=== PATIENT | male | born 1930 | race Caucasian/White ===

== ENCOUNTER 2019-11-18 10:15 | Inpatient (IN) ==
[2019-11-18] MEDS ORDERED: NS 2,000 ML MISC PRN (10:31)
--- NOTE | 2019-11-18 10:40 | PROVIDER DOCUMENTATION ---
HPI-General Adult - General Chief Complaint: Weakness Stated Complaint: WEAKNESS Time Seen by Provider: 11/18/19 10:18 Source: patient, family, EMS Allergies/Adverse Reactions: Patient Allergies Allergy/AdvReac Type Severity Reaction Status Date / Time Penicillins Allergy ANAPHYLAXIS Verified 11/18/19 11:12 Sulfa (Sulfonamide Allergy "stays in Verified 11/18/19 11:12 Antibiotics) my systems and bad taste in my mouth" novacaine AdvReac Unknown Uncoded 11/18/19 11:12 Home Medications: Home Medication List Medication Instructions Recorded Confirmed Last Taken Type Carbamazepine 200 mg PO BID 12/20/16 11/18/19 11/18/19 History Mirtazapine 45 mg PO QHS 12/20/16 11/18/19 1 Day Ago History ~11/17/19 Pantoprazole [Protonix] 40 mg PO DAILY@0700 12/20/16 11/18/19 11/18/19 History Aspirin 81 mg PO DAILY 03/21/17 11/18/19 11/18/19 History Metoprolol [Lopressor] 25 mg PO DAILY 03/21/17 11/18/19 11/18/19 History Prasugrel [Effient] 10 mg PO DAILY 03/21/17 11/18/19 11/18/19 History ATORVAstatin [Lipitor] 40 mg PO QHS 09/25/17 11/18/19 1 Day Ago History ~11/17/19 Melatonin 20 mg PO HS 09/25/17 11/18/19 1 Day Ago History ~11/17/19 Midodrine HCl [Proamatine] 10 mg PO DIRECTED 09/25/17 11/18/19 11/18/19 History Sennosides/Docusate Sodium [Stool 1 each PO BID 09/25/17 11/18/19 11/18/19 Hist ory Softener Tablet] Cyanocobalamin (Vitamin B-12) 1,000 mcg PO QAM 11/18/19 11/18/19 11/18/19 History [Vitamin B-12] Pregabalin 150 mg PO QAM 11/18/19 11/18/19 11/18/19 History - History of Present Illness -Gen Adult Nature of Presenting Problems: 89yo male presents via EMS with CC of hallucinations and muscle jerks. Per EMS the patient missed multiple dialysis sessions and the family called EMS 2/2 to patient having hallucinations and difficulty moving. Per the family the patient has had weakness and shakes as well as hallucinations. The patient is alert and oriented x3, but does report that he has been having back muscle jerks since last week . The patient denies any pain. The family reports that they were recently acessed at another ER and were discharge with dx of dehydration, but patient has not improved since then. Location of Pain/Injury: reports: none Pain Radiation: reports: no radiation Quality of Pain: reports: none Severity: reports: mild Onset/Duration: reports: 3 days ago Timing: reports: still present Context/Activities at Onset: reports: none, other (recently missed dialysis) Modifying Factors: improves with: nothing Associated Symptoms: reports: weakness, other (shakes, decreased appetite.) - Diabetes Related Context Context: reports: other (missed dialyis) Review of Systems - Adult - REVIEW OF SYSTEMS - ADULT Constitutional: denies: fever Eyes: reports: decreased vision Ears, Nose, Mouth & Throat: reports: no symptoms reported. denies: throat pain Cardiovascular: reports: no symptoms reported. denies: chest pain Respiratory: reports: no symptoms reported. denies: shortness of breath Gastrointestinal: reports: no symptoms reported. denies: abdominal pain Genitourinary: reports: hesitency, incontinence Musculoskeletal: reports: muscle weakness, other (jerks) Integumentary: reports: no symptoms reported Neurological: reports: other (weakness) Psychiatric: reports: other (hallucinations) Hematologic/Lymphatic: reports: no symptoms reported, other (no bleeding) Allergic/Immunologic: reports: no symptoms reported, other (no swelling) Past History - Adult - PAST MEDICAL HISTORY-ADULT Review of Records: reports: Old Records Reviewed Cardiovascular: reports: CAD (with stent), HTN Genitourinary: reports: ESRD (M,W,F dialsysis Dr. Valderrama patient.) - FAMILY HISTORY Family History: reviewed, not pertinent - SOCIAL HISTORY Smoking: denies Substance Use: none/never Alcohol Use Frequency: never Physical Exam-General - PHYSICAL EXAM-ADULT Initial Vital Signs Reviewed: Yes - CONSTITUTIONAL General Appearance: appears well, alert, lethargic - EYES Eyes: PERRL/EOMI. negative: conjuctival exudate, photophobia, sclera injected, scleral icterus - HEAD, EARS, NOSE, MOUTH & THROAT HENMT: normocephalic/atraumatic. negative: moist mucous membranes (dry), pharyngeal erythema - NECK Neck: non-tender, supple - RESPIRATORY Respiratory: lungs clear, no respiratory distress, decreased breath sounds (LLL) . negative: stridor, wheezing - CARDIOVASCULAR Cardiovascular: regular rate, rhythm, systolic murmur. negative: no edema (trace LE) - GASTROINTESTINAL (ABDOMEN) Abdominal Exam: non tender, soft - MUSCULOSKELETAL Extremity: non-tender, other (strength 5/5 in the upper and lower extremities) - SKIN Integumentary: ecchymosis (multiple in the upper extremities.) - NEUROLOGIC Neurologic: grossly normal, no motor/sensory deficits, motor weakness - PSYCHIATRIC Psych/Mental Status: normal thought content, normal thought process, oriented x 3 Progress - PLAN OF CARE/RESULTS Progress/Plan/Lab Results: Vital Signs - 8 hr 11/18/19 10:25 Temperature 97.7 F Pulse Rate 64 Respiratory Rate 18 Blood Pressure 122/63 O2 Sat by Pulse Oximetry 94 L Orders Category Date Time Status Dialysate Bath: DIRECTED Care 11/18/19 10:31 Active Dialysate Flow: DIRECTED Care 11/18/19 10:31 Active Dialysis Blood Flow: DIRECTED Care 11/18/19 10:31 Active Dialysis Machine Settings: DIRECTED Care 11/18/19 10:31 Active Dialysis Treatment Time: DIRECTED Care 11/18/19 10:31 Active Dialysis Treatment Weight ROUTINE Care 11/18/19 10:31 Active Dialysis UF Removal Amount: DIRECTED Care 11/18/19 10:31 Active Dialyzer Type: DIRECTED Care 11/18/19 10:31 Active NRSG - Obtain Dialysis Consent NOW Care 11/18/19 10:31 Active 0.9% Sodium Chloride Inj [Ns] 2,000 ml Med 11/18/19 10:31 Discontinued MISC As Directed mls/hr - ESRD patient with AMS, weakness, and muscle spasm after missing dialysis - full work up for AMS with metabolic, infectious, neurological, drug induced, and structural disease initiated. - will ensure evaluation of electrolytes and plan to call Dr. 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 Marrero who believes the patient needs dialysis. Discussed with Dr. Marrero that the patient has been difficult to obtain blood speciman for analysis, so will have dialysis nurse draw blood prior to dialysis so we can analyze labs prior to dialysis.) Reassessment #2 Status: other (Patient currently in dialysis. CMP without significant electrolyte abnormalities. Given acidosis, leukopenia, and AMS will plan for admission to the hospitalist team for further work up and care. Discussed with the hospitalist team who has accepted the patient.) Departure - Departure Date of Disposition Decision: 11/18/19 Time of Disposition Decision: 15:12 DIAGNOSIS: ESRD (end stage renal disease) on dialysis Disposition: ADMITTED INPATIENT 09 Certified Medical Emergency: Emergent Condition: Good Referrals and Follow-Ups: Watson Rankin MD [Primary Care Provider] - - Critical Care Note This patient required my direct & personal management of CC.: No Attestation - Physician/ ROSA Attestation Patient care was provided by Advanced Practice Provider:: No The physician spent face to face time with patient:: Yes Advanced Practice Provider documentation review:: Supervising physician onsite and consulted in the evaluation and care of this patient. The physician did have a face to face encounter with the patient.
[2019-11-18 11:57] LABS: ALLEN TEST YES; BLOOD TYPE ARTERIAL; METHB 0.8 % (0.0-1.5); O2(CT) 16.2 mL/dL (15.0-23.0); PO2(98.6) 108 mmHg (60-100); SAMPLE BLOOD; SAO2 98.2 % (95.0-100.0)
[2019-11-18 12:00] LABS: MODALITY CANNULA
[2019-11-18 12:03] LABS: PCO2(98.6) 61 mmHg (35-45)
--- NOTE | 2019-11-18 12:06 | Diag Imaging Result Doc PS360 ---
EXAM: CHEST-1 VIEW HISTORY: Altered Mental status TECHNIQUE: Single view COMPARISON: 09/25/2017 FINDINGS: The heart is enlarged and there is central vascular prominence. There are infiltrates and atelectasis in the left lung base with a small left effusion. Calcified granuloma in the right lung. Previously there was a right jugular line. This is no longer present. No pneumothoraces. IMPRESSION: 1.Left basilar infiltrates and atelectasis with small left effusion 2.Cardiomegaly with central vascular prominence Electronically signed by Sal Evans 11/18/2019 12:04 PM
--- NOTE | 2019-11-18 12:32 | Diag Imaging Result Doc PS360 ---
EXAM: CT HEAD W/O CONTRAST HISTORY: Head injury TECHNIQUE: CT brain without contrast COMPARISON: None. FINDINGS: No parenchymal hemorrhage. No epidural or subdural hematoma. No subarachnoid hemorrhage. No mass identified on this noncontrasted exam. Mild atrophy. No hydrocephalus. No skull fracture. IMPRESSION: No hemorrhage. No injury. This exam was performed using automated exposure control, adjustment of mA or kV according to patient size, and/or use of iterative reconstruction technique. Electronically signed by Sal Evans 11/18/2019 12:30 PM
--- NOTE | 2019-11-18 12:33 | EKG Report ---
Test Performed on : 11/18/2019 11:13:21 AM Test Reason : Altered Mental Status Blood Pressure : / mmHG Vent. Rate : 060 BPM Atrial Rate : 060 BPM P-R Int : 232 ms QRS Dur : 158 ms QT Int : 460 ms P-R-T Axes : -11 -72 -05 degrees QTc Int : 460 ms Sinus rhythm. with 1st degree AV block. Left axis deviation Right bundle branch block Inferior infarct (cited on or before 25-SEP-2017) Anterolateral infarct (cited on or before 25-SEP-2017) Abnormal ECG When compared with ECG of 25-SEP-2017 15:49, Questionable change in QRS duration Questionable change in initial forces of Anterolateral leads Unconfirmed Result
[2019-11-18 13:50] LABS: BASO# 0.01 X1000 (0.0-0.2); BASO% 0.3 % (0.0-0.8); EOS# 0.06 X1000 (0.0-0.7); EOS% 1.7 % (0.0-10.0); HEMOGLOBIN 11.9 g/dL (14.0-18.0); IMM GRAN# 0.02 X1000 (0.0-0.04); IMM GRAN% 0.6 % (0.0-0.5); LYMPH# 0.93 X1000 (1.2-3.4); LYMPH% 26.1 % (20.5-51.1); MCH 32.6 PG (27-31); MCHC 31.3 g/dL (33-37); MCV 104.1 FL (81-99); MONO# 0.34 X1000 (0.11-0.59); MONO% 9.5 % (1.7-9.3); MPV 11.2 FL (7.4-10.4); NEUT# 2.21 X1000 (1.4-6.5); NEUT% 61.8 % (42.2-75.2); PLT 92 X1000 (130-400); RBC 3.65 XMIL (4.7-6.1); RDW 14.9 % (11.5-14.5); WBC 3.57 X1000 (4.8-10.8)
[2019-11-18 13:56] LABS: INR 0.96; PROTIME 12.9 Seconds (11.0-16.0)
[2019-11-18 13:57] LABS: PTT 29.5 Seconds (22.3-41.8)
[2019-11-18 14:21] LABS: ALB/GLOB RATIO 1.8; ALBUMIN 3.1 g/dL (3.5-5.0); CALCIUM 8.1 mg/dL (8.8-10.2); CREATININE 6.8 mg/dL (0.7-1.2); TOTAL BILIRUBIN 0.26 mg/dL (0.20-1.00); TOTAL PROTEIN 4.8 g/dL (6.3-8.3)
[2019-11-18 14:36] LABS: CK INDEX 1.9 (0.0-2.5); CK-MB 3.96 ng/mL (0.0-5.0)
[2019-11-18] MEDS ORDERED: DUONEB (A & A) INH PRN (15:57)
--- NOTE | 2019-11-18 19:40 | HISTORY AND PHYSICAL ---
CHIEF COMPLAINT: Generalized weakness, hallucinations. HISTORY OF PRESENT ILLNESS: This is an 89-year-old gentleman with a history of end-stage renal disease on Monday, Monday, Monday hemodialysis, prostate cancer, coronary artery disease. He presents to the emergency room with family members complaining of generalized weakness since but stating that both arms and both legs are weak. He does complain of muscle jerking to all 4 extremities. He states this started last also. He was seen in an outlying ER, diagnosed with dehydration. They stated he was discharged from the emergency room although there was no change in his symptoms. He has missed multiple dialysis sessions over the last 2 weeks. At the time of my exam the patient is alert and oriented x3. He just complains of feeling weak all over. He was found to have a creatinine of 6 with a BUN of 67. PAST MEDICAL HISTORY: 1. End-stage renal disease on Monday, Monday, Monday hemodialysis. 2. Prostate cancer. 3. CAD status post stent 2017. 4. Hyperlipidemia. 5. Hypertension. 6. Sleep apnea. PAST SURGICAL HISTORY: Cholecystectomy, cataract removal, hernia repair, total knee replacement, left arm fistula. SOCIAL HISTORY: He drinks alcohol. He denies any tobacco or illicit drug use. He does live with family members. ALLERGIES: Penicillin which causes anaphylaxis, sulfa which gives a bad taste in his mouth and Novocain with unknown reaction. HOME MEDICATIONS: A list will be obtained by the nursing staff and once verified will review and restart as appropriate. REVIEW OF SYSTEMS: Discussed with patient with pertinent positives stated in the HPI. He denied any syncope or dizziness, any chest pain or palpitations, any shortness of breath, cough, fever, chills, any night sweats, any vomiting, diarrhea, constipation, black or bloody vomitus or stools any hematuria, dysuria, frequency, urgency. PHYSICAL EXAMINATION: GENERAL: This is an 89-year-old gentleman who is sitting up in the stretcher in the dialysis in no distress. VITAL SIGNS: Blood pressure is 163/70 with a heart rate of 64, respirations are 18, temperature is 97.7 degrees with room air saturations of 95%. HEENT: Head is normocephalic, atraumatic. Mucous membranes are moist. NECK: Supple with trachea midline. CARDIOVASCULAR: Regular rate and rhythm. S1 and S2 are appreciated. He does have a systolic murmur. Calves are nontender bilateral with peripheral pulses palpable x4 extremities. PULMONARY: Breath sounds are diminished in the bases. Chest rises and falls symmetric respiration. Chest wall is nontender to palpation. GASTROINTESTINAL: Abdomen soft, nontender, nondistended with bowel sounds in all 4 quadrants. SKIN: Warm and dry. NEUROLOGIC: He is alert and oriented x3. LABS: WBC is 3.5 with hemoglobin 11.9, hematocrit 38, platelets of 92,000. Sodium is 136, potassium 5, BUN 67, creatinine 6.8 with a glucose of 126. Blood alcohol is 0. CT of the head reveals no hemorrhage, no injury. Chest x-ray, left basilar infiltrates and atelectasis with a small pneumonia, cardiomegaly with central vascular prominence. ASSESSMENT AND PLAN: 1. End-stage renal disease on Monday, Monday, Monday hemodialysis in a patient who is noncompliant missing numerous dialysis appointments, is currently in dialysis. 2. Hypercapnic respiratory failure. Will continue with supplemental oxygen. 3. Left basilar infiltrates and atelectasis. 4. Ischemic heart disease. 5. Congestive heart failure secondary to diastolic dysfunction with an ejection fraction of 60% in August 2018. 6. Hypertension. 7. Coronary artery disease status post stent in 2017 currently on Effient. 8. Generalized weakness. 9. Reported hallucinations. The patient is alert and oriented x3 at this time. PLAN: The patient is in dialysis at present. He will be admitted to the medical floor, placed on telemetry. We will identify his home medications and continue as appropriate. Will consult Dr. Valderrama for medical management. Will consult Physical Therapy. Check a daily renal profile. Check a CBC in the morning. We will get a urine drug screen as well as a blood alcohol. We will identify his home medications and continue as appropriate. Pt was evaluated and plan was discussed with Dr Grimes. Further treatments pending hospital course. Dictated by DIAMOND Wiggins for Robbie Portillo MD cc: DIAMOND Wiggins MD [facility]
[2019-11-18 19:51] LABS: ALLEN TEST YES; BE 0.9 mmoll (-3.0-3.0); BLOOD TYPE ARTERIAL; HCO3-(ACT) 25.6 mmoll (20.0-26.0); O2(CT) 17.2 mL/dL (15.0-23.0); PO2(98.6) 97 mmHg (60-100); SAMPLE BLOOD; SAO2 97.7 % (95.0-100.0); THB 12.8 g/dL (11.5-17.4)
[2019-11-18 19:56] LABS: MODALITY CANNULA; PCO2(98.6) 58 mmHg (35-45)
--- NOTE | 2019-11-18 20:16 | Diag Imaging Result Doc PS360 ---
EXAM: CHEST-PORTABLE - 11/18/2019 HISTORY: low 02 sat TECHNIQUE: Portable chest COMPARISON: Prior exam of 11/18/2019 FINDINGS: There is decreased prominence of central vascular markings compared to prior. There are left basilar infiltrate and left pleural effusion similar to prior. There are small right pleural effusion similar to prior. There is no evidence of pneumothorax. IMPRESSION: Left basilar infiltrate and left pleural effusion similar to prior. Small right pleural effusion similar to prior. Electronically signed by Joce Powell 11/18/2019 8:14 PM
--- NOTE | 2019-11-18 20:38 | HISTORY AND PHYSICAL ---
ADDENDUM: Patient seen and examined by me [id number]. All the laboratory, vital signs, and images were reviewed. This patient was brought to the emergency department due to some hallucinations, possible muscle spasms/jerks. At the moment of my physical exam, this patient was completely awake and alert. He was able to recognize family members at the bedside. He was able to say his name and date of . He was following commands and answering my questions. Laboratory showed some CO2 retention. BUN and creatinine elevated. I am not quite sure if this patient missed a dialysis recently. He is not able to provide this information. He seems to be a little bit confused on and off. He is having some mild tremors, but probably is better compared with admission. This patient received dialysis today. I will monitor this patient closely. The patient has not been able to walk at home. He needs to use a walker, but recently he has been using more a wheelchair. I agree with the rest of the nurse practitioner's assessment and plan. Since he has a left basilar infiltrate, I will start this patient on antibiotics. cc: Robbie Portillo MD
[2019-11-18] MEDS ORDERED: LEVAQUIN 750 MG/D5W 750 MG/150 ML IVPB IV ONE (21:01)
[2019-11-18] MEDS: REMERON PO SCH (21:12)
[2019-11-18] MEDS: MELATONIN PO SCH (21:12)
[2019-11-18] MEDS: PERICOLACE PO SCH (21:12)
[2019-11-18] MEDS: TEGRETOL PO SCH (21:12)
[2019-11-19] MEDS: PROTONIX PO SCH (06:39)
[2019-11-19 06:48] LABS: ALBUMIN 2.8 g/dL (3.5-5.0); CALCIUM 7.8 mg/dL (8.8-10.2); CREATININE 4.4 mg/dL (0.7-1.2); PHOSPHORUS 3.9 mg/dL (2.7-4.5); POTASSIUM 4.1 mmol/L (3.5-5.1)
[2019-11-19] MEDS ORDERED: LYRICA PO SCH (09:00)
[2019-11-19] MEDS: PERICOLACE PO SCH ×2 (09:59→20:30)
[2019-11-19] MEDS: ASPIRIN PO SCH (10:00)
[2019-11-19] MEDS: VITAMIN B-12 PO SCH (10:00)
[2019-11-19] MEDS: TEGRETOL PO SCH ×2 (10:00→20:30)
[2019-11-19] MEDS: EFFIENT PO SCH (10:53)
--- NOTE | 2019-11-19 10:59 | NEPHROLOGY CONSULTATION ---
DATE: 11/18/2019 REASON FOR CONSULTATION: End-stage renal disease and medical management. HISTORY OF PRESENT ILLNESS: Mr. Little is an 89-year-old, white male who follows with us and receives his routine hemodialysis our [facility]. He has been in his usual baseline health and was seen last by me at the end of last week. He has coronary disease, hypertension, hyperlipidemia, history of prostate cancer. His dialysis treatments are complicated by occasional hypotension and hypoalbuminemia. He was brought to the emergency room by family because of generalized weakness, as well as possible hallucinations. He missed his treatment on Monday because he was to weak to go. Symptoms started last . He denies any new medications. No chills, fevers, cough, sputum, shortness of breath, etc. PAST MEDICAL HISTORY: As above. SOCIAL: Lives with his family. No alcohol or tobacco. FAMILY HISTORY: Noncontributory. REVIEW OF SYSTEMS: Noncontributory. ALLERGIES: Penicillin and sulfa. HOME MEDICATIONS: Include mirtazapine, carbamazepine, pantoprazole, aspirin, metoprolol, Effient, Melatonin, atorvastatin, Midrin, cyanocobalamin. PHYSICAL EXAMINATION: Vital Signs: Blood pressure 163/75, heart rate 58, respiration 18, afebrile. General: Elderly man, no acute distress. Skin: Warm and dry. Somewhat pale. HEENT: Conjunctivae are pink. Pupils are equal. Oropharynx is dry. Neck: Supple. Neck veins are not distended. Trachea is midline. Heart: Regular. No murmurs, rubs, gallops. Lungs: Have equal excursion, equal breath sounds. No crackles or wheezes. Abdomen: Soft, nontender. Bowel sounds present. Extremities: Have no edema, clubbing, or cyanosis. Neurologic: No worthy for asterixis. IMPRESSION: 1. Chronic kidney disease 5D. He missed his last dialysis treatment. He is currently on dialysis using a 2K bath. We will target his outpatient dry weight. 2. Altered mental status, weakness, asterixis. He denies that any of his medications are new. I agree with withholding his lyrica which I will do. His dose is now 5, but it certainly could be problematic in a dialysis patient. I am not aware of any of his other medications causing these findings. Otherwise, medications are reviewed. No changes required. cc: Randall Valderrama MD [facility]
[2019-11-19 13:06] LABS: BASO# 0.01 X1000 (0.0-0.2); BASO% 0.3 % (0.0-0.8); EOS# 0.08 X1000 (0.0-0.7); EOS% 2.2 % (0.0-10.0); HEMATOCRIT 38.1 % (42.0-52.0); HEMOGLOBIN 12.1 g/dL (14.0-18.0); LYMPH# 0.88 X1000 (1.2-3.4); LYMPH% 23.7 % (20.5-51.1); MCH 33.3 PG (27-31); MCHC 31.8 g/dL (33-37); MONO# 0.45 X1000 (0.11-0.59); MONO% 12.1 % (1.7-9.3); MPV 11.3 FL (7.4-10.4); NEUT% 61.7 % (42.2-75.2); PLT 91 X1000 (130-400); RBC 3.63 XMIL (4.7-6.1); RDW 14.6 % (11.5-14.5); WBC 3.72 X1000 (4.8-10.8)
--- NOTE | 2019-11-19 17:52 | PROGRESS NOTE ---
DATE: 11/19/2019 SUBJECTIVE: The patient is sitting up at the edge of the bed. He states that he feels a lot better today. He is alert and oriented to person, place and time. OBJECTIVE: Vital Signs: Temperature 98.3 degrees, blood pressure 148/74, heart rate 75, respirations 14, O2 saturation 99% on room air. General: This is an elderly male lying in bed, in no acute distress. Heart: S1, S2 normal. Regular rate and rhythm. Lungs: Equal air entry bilaterally. No wheezing. No rales. Abdomen: Positive bowel sounds. Soft, nontender, nondistended. Extremities: No edema. No cyanosis. No calf tenderness. Neurologic: The patient is alert and oriented x3. LABORATORY DATA: White blood cell count 3.7, hemoglobin 12, hematocrit 38, platelets 91,000. Sodium 137, potassium 4.1, chloride 97, CO2 is 26, BUN 35, creatinine 4.4, glucose 85, calcium 7.8. ASSESSMENT AND PLAN: 1. Metabolic encephalopathy. Improved. The patient is more awake and alert today. He is able to answer questions appropriately. We will continue to treat the underlying infection. 2. Possible left basilar pneumonia. Continue with antibiotic therapy. A procalcitonin level is currently pending. Will add incentive spirometry. 3. Thrombocytopenia. This appears to be new. We will continue to monitor the patient closely. 4. Chronic kidney disease stage 5. Management as per the aircraft maintenance instructor. 5. History of prostate cancer. Aware. 6. Obstructive sleep apnea. Aware. 7. Coronary artery disease status post stent. Continue on the current cardiac medications. 8. Disposition. Continue with physical therapy. cc: Estella Estrada MD [facility]
[2019-11-19] MEDS: MELATONIN PO SCH (20:31)
[2019-11-19] MEDS: REMERON PO SCH (20:32)
[2019-11-20 06:34] LABS: HEMATOCRIT 31.6 % (42.0-52.0); HEMOGLOBIN 10.1 g/dL (14.0-18.0); MCH 33.4 PG (27-31); MCV 104.6 FL (81-99); MPV 10.9 FL (7.4-10.4); RBC 3.02 XMIL (4.7-6.1); RDW 14.4 % (11.5-14.5); WBC 2.95 X1000 (4.8-10.8)
[2019-11-20 06:42] LABS: ALBUMIN 2.9 g/dL (3.5-5.0); CALCIUM 7.9 mg/dL (8.8-10.2); POTASSIUM 4.2 mmol/L (3.5-5.1)
[2019-11-20 06:59] LABS: CREATININE 5.4 mg/dL (0.7-1.2)
[2019-11-20] MEDS: PROTONIX PO SCH (07:03)
--- NOTE | 2019-11-20 07:07 | Diag Imaging Result Doc PS360 ---
CHEST-2 VIEWS - 11/20/2019 INDICATION: pneumonia COMPARISON: 11/18/2019 FINDINGS: Stable moderate opacification in the left lung base, likely a pleural effusion. There is also a trace right pleural effusion. No new infiltrates. Stable cardiomegaly. IMPRESSION: No change from prior. Electronically signed by Basil Arce 11/20/2019 7:04 AM
[2019-11-20] MEDS: ASPIRIN PO SCH (08:59)
[2019-11-20] MEDS: TEGRETOL PO SCH ×2 (08:59→20:32)
[2019-11-20] MEDS: EFFIENT PO SCH (08:59)
[2019-11-20] MEDS: VITAMIN B-12 PO SCH (08:59)
[2019-11-20] MEDS: PERICOLACE PO SCH ×2 (08:59→20:31)
--- NOTE | 2019-11-20 10:04 | Diag Imaging Result Doc PS360 ---
CT THORAX W/O CONTRAST - 11/20/2019 INDICATION: Dyspnea COMPARISON: Chest x-ray from 11/20/2019 FINDINGS: There is no adenopathy. There is cardiomegaly. Great vessels are grossly normal. There are small bilateral pleural effusions left greater than right. There is some mild patchy atelectasis in the lingula and left lower lobe as well. Airways are clear. There is a low-density right adrenal gland nodule measuring 3.6 cm. This is compatible with a benign myelolipoma. Otherwise upper abdominal images are unremarkable. There are moderate degenerative changes of the spine. No acute or suspicious bony lesion. IMPRESSION: Cardiomegaly. Bilateral pleural effusions left greater than right. Patchy atelectasis in the left lung base. This exam was performed using automated exposure control, adjustment of mA or kV according to patient size, and/or use of iterative reconstruction technique Electronically signed by Basil Arce 11/20/2019 10:02 AM
--- NOTE | 2019-11-20 17:08 | PROGRESS NOTE ---
DATE: 11/20/2019 SUBJECTIVE: The patient is a sitting at the edge of the bed. He states that he feels much better today. He is more awake and alert. He reports that he has not had a bowel movement yet. OBJECTIVE: Vital Signs: Temperature 97.3 degrees, blood pressure 146/60, heart rate 71, respirations 19, O2 saturation is 100% on 3 L nasal cannula. General: This is a chronically ill- appearing elderly male sitting at the edge of the bed in no acute distress. Heart: S1, S2 normal. Regular rate and rhythm. Lungs: Clear to auscultation bilaterally. No wheezing. No rales. No rhonchi. Diminished breath sounds in the left lung base. Abdomen: Positive bowel sounds. Soft, nontender, nondistended. Extremities: No edema. No cyanosis. Neurologic: The patient is alert and oriented x3. LABORATORY DATA: White blood cell count 2.9, hemoglobin 10, hematocrit 31, platelets 71,000. Sodium 130, potassium 4.2, chloride 92, CO2 25, BUN 48, creatinine 5.4, glucose 108, calcium 7.9. Chest CT shows bilateral pleural effusions, left greater than right. Atelectasis in the left lung base, 3.6 cm right adrenal nodule. ASSESSMENT AND PLAN: 1. Acute hypoxemic respiratory failure. Continue to try and wean the patient off of supplemental oxygen. 2. Metabolic encephalopathy. Resolved. 3. Bilateral pleural effusions. Aware. 4. Acute bronchitis. The patient is on Levaquin and p.r.n. bronchodilator therapy. 5. Chronic kidney disease stage 5. Management as per the shafting worker. 6. Coronary artery disease status post stent. Continue on aspirin and Effient. 7. History of prostate cancer. Aware. 8. Pancytopenia. Will consult with Hematology for further recommendations. 9. Constipation. Will start miralax and dulcolax. 10. Disposition. Will continue with physical therapy. Will consult administrator social welfare for discharge planning. cc: Estella Estrada MD [facility]
[2019-11-20] MEDS: MIRALAX PO SCH (20:31)
[2019-11-20] MEDS: REMERON PO SCH (20:31)
[2019-11-20] MEDS: MELATONIN PO SCH (20:31)
[2019-11-20] MEDS: COLACE PO SCH (20:31)
[2019-11-20] MEDS: DULCOLAX PR SCH (20:35)
[2019-11-20] MEDS: LEVAQUIN 500 MG/D5W 500 MG/100 ML IVPB IV SCH (23:26)
[2019-11-21 05:33] LABS: HEMATOCRIT 33.8 % (42.0-52.0); MCH 33.6 PG (27-31); MCHC 32.5 g/dL (33-37); MCV 103.4 FL (81-99); RBC 3.27 XMIL (4.7-6.1); RDW 14.5 % (11.5-14.5); WBC 2.84 X1000 (4.8-10.8)
[2019-11-21 05:41] LABS: CALCIUM 8.1 mg/dL (8.8-10.2); CREATININE 6.4 mg/dL (0.7-1.2); PHOSPHORUS 4.8 mg/dL (2.7-4.5); POTASSIUM 4.5 mmol/L (3.5-5.1)
[2019-11-21] MEDS: PROTONIX PO SCH (06:29)
[2019-11-21] MEDS ORDERED: NS 2,000 ML MISC PRN (06:48)
[2019-11-21] MEDS ORDERED: HEPARIN IV PRN (06:48)
[2019-11-21] MEDS ORDERED: TIGHT: 0.2 ML/HR FOR DIALYSIS MISC PRN (06:48)
[2019-11-21] MEDS: MIRALAX PO SCH ×2 (10:26→20:30)
[2019-11-21] MEDS: EFFIENT PO SCH (10:26)
[2019-11-21] MEDS: ASPIRIN PO SCH (10:26)
[2019-11-21] MEDS: COLACE PO SCH ×2 (10:26→20:30)
[2019-11-21] MEDS: VITAMIN B-12 PO SCH (10:26)
[2019-11-21] MEDS: TEGRETOL PO SCH ×2 (10:26→20:34)
[2019-11-21] MEDS: PERICOLACE PO SCH ×2 (10:27→20:30)
--- NOTE | 2019-11-21 11:56 | NEPHROLOGY PROGRESS NOTE ---
DATE: 11/21/2019 SUBJECTIVE: He is sitting up, working a [employer] puzzle. He is still wearing supplemental oxygen, but no cough, shortness of breath, etc. He states he feels back to normal. OBJECTIVE: Vital Signs: Blood pressure 146/62, heart rate 76, respirations 14, afebrile. General: No acute distress. Skin: Warm and dry. HEENT: Conjunctivae are pink. Neck: Neck veins are not distended. Heart: Regular. No gallops. Lungs: Equal. No crackles or wheezes. Abdomen: Soft, nontender. Bowel sounds present. Extremities: No edema, clubbing, or cyanosis. Neurologic: No asterixis. IMPRESSION: Altered mental state. He had recently started Lyrica under the care of Dr. Rankin. His asterixis is most likely related to Lyrica toxicity. This seems to be resolved with withdrawal of medication and dialysis. I counseled the patient regarding the likely etiology of his encephalopathy, and avoidance of gabapentinoids in the future. He was taking this for complaints of peripheral neuropathy. He is currently taking mirtazapine 45 mg daily. He is on this particular antidepressant for assistance with appetite. It is not clear that this has made a big difference, but I may change this medication to duloxetine. I will discuss this with him in the future. I brought it up today. From my perspective, he can be discharged whenever you feel his other problems are stable. He is still requiring supplemental oxygen, but this is weaning. He had a CT of his chest yesterday, which demonstrated only patchy atelectasis and effusions. cc: Randall Valderrama MD
[2019-11-21 14:45] LABS: PROTIME 13.3 Seconds (11.0-16.0)
--- NOTE | 2019-11-21 16:27 | PROGRESS NOTE ---
DATE: 11/21/2019 SUBJECTIVE: The patient is resting comfortably in bed. He states that he feels okay today. No acute events noted overnight. OBJECTIVE: Vital Signs: Temperature 97.6 degrees, blood pressure 167/63, heart rate 73, respirations 19, and O2 saturations 100% on 3 liters nasal cannula. General: This is a chronically ill-appearing elderly male sitting up in bed in no acute distress. Heart: S1 and S2 normal. Regular rate and rhythm. Lungs: Equal air entry bilaterally. No wheezing. No rales. Abdomen: Positive bowel sounds. Soft, nontender, nondistended. Extremities: No edema, no cyanosis. Neurologic: The patient is alert and oriented x4. LABS: White blood cell count 2.8, hemoglobin 11, hematocrit 33, platelets 79,000. Sodium 132, potassium 4.5, chloride 94, CO2 of 24, BUN 57, creatinine 6.4, glucose 105, phosphorus 4.8, iron 42, folic acid 3.2. ASSESSMENT AND PLAN: 1. Acute hypoxemic respiratory failure. We will try and wean the patient off of supplemental oxygen today. 2. Toxic metabolic encephalopathy. Resolved. 3. Bilateral pleural effusions. Stable. 4. Acute bronchitis. Continue on Levaquin. 5. Chronic kidney disease stage 5. The patient is due for dialysis today. 6. Obesity. Aware. 7. Coronary artery disease, status post stent. Stable. Continue on aspirin and Effient. 8. Pancytopenia. Hematology has seen the patient and a workup is in progress. 9. Constipation. Continue with laxative therapy. 10. Disposition. The patient is going to be discharged to inpatient rehab once a bed is available. Continue with physical therapy. cc: Estella Estrada MD [facility]
--- NOTE | 2019-11-21 18:58 | HEMO/ONC CONSULTATION ---
DATE: 11/21/2019 REQUESTING PHYSICIAN: Hospitalist service. REASON FOR CONSULTATION: Pancytopenia. HISTORY OF PRESENT ILLNESS: Mr. Little is an 89-year-old male who presented to the emergency department complaining of generalized weakness. He was found to have dehydration initially. He does have endstage renal disease and receives hemodialysis on Mondays, Wednesdays and Fridays. He is now thought to have acute bronchitis, resulting in metabolic encephalopathy as well as weakness. During his hospitalization, he has had low counts. They were low on admission, but have been trending downward since that time. He feels okay today and has no other acute complaints. REVIEW OF PAST MEDICAL HISTORY: 1. Endstage renal disease, on hemodialysis. 2. Prostate cancer. 3. CAD. 4. Hyperlipidemia. 5. Hypertension. 6. Sleep apnea. PAST SURGICAL HISTORY: 1. Cholecystectomy. 2. Eye cataract removal. 3. Total knee replacement. 4. Left arm fistula. 5. Hernia repair. SOCIAL HISTORY: The patient denies any tobacco or illicit drug use. He lives with family members. He does report drinking alcohol, but no quantity noted. FAMILY HISTORY: No family history of any blood disorders. REVIEW OF SYSTEMS: As per HPI. Twelve points have been reviewed and all else is negative. PHYSICAL EXAMINATION: Vital Signs: Temperature 97.6 degrees, heart rate 73, respirations 19, blood pressure 167/63, O2 saturation 100% on 3 L nasal cannula. General: This is an elderly male lying in his hospital bed. He has a family member at bedside. HEENT: Head normocephalic, atraumatic. Eyes: Pupils equal, round and reactive. Ears, nose, throat, neck and mouth: Mucosa appears to be normal. Gross auditory acuity is intact. Cardiovascular: S1, S2 heard. Regular rate. Regular rhythm. Respiratory: Coarse breath sounds noted throughout. Gastrointestinal: Abdomen is soft. Positive bowel sounds noted. Musculoskeletal: No obvious bony abnormalities. Neurologic: The patient is alert and oriented. LABORATORY DATA: White blood cells today are 2.84, hemoglobin 11.0 hematocrit is 33.8, platelet count is 79,000. Sodium is 132, potassium 4.5, chloride 94, CO2 is 24, BUN 57, creatinine 6.4, glucose is 105. ASSESSMENT AND PLAN: 1. Pancytopenia. Review of historical labs showed that he has had normal white blood cell count and platelet count previously. His counts have only been depressed since this hospitalization. This is likely due to acute illness versus medication causes. We will go ahead and check vitamin studies as well as a disseminated intravascular coagulation panel to replenish/correct anything that we can at this point. Otherwise, continue to treat his underlying infection and monitor his counts closely. His anemia is close to his baseline. He likely has anemia secondary to his endstage renal disease. 2. Respiratory failure. He continues on supplemental oxygen. 3. Metabolic encephalopathy. This has resolved. 4. Acute bronchitis. He is on antibiotics. 5. Chronic kidney disease, endstage. He will continue to receive hemodialysis per Dr. Valderrama. We want to thank you for consulting us on Mr. Little. We will continue to follow along and adjust our treatment plan per his hospital course. Dictated by RON Morrow for Maya Caicedo MD cc: Maya Caicedo MD I have seen and examined the patient and the above note reflects my history, physical exam, assessment and plan. Maya Caicedo MD [facility]
[2019-11-21] MEDS: MELATONIN PO SCH (20:29)
[2019-11-21] MEDS: REMERON PO SCH (20:29)
[2019-11-21] MEDS: DULCOLAX PR SCH (20:30)
[2019-11-21] MEDS: LACTULOSE PO SCH (20:33)
[2019-11-22 05:45] LABS: HEMATOCRIT 31.7 % (42.0-52.0); HEMOGLOBIN 10.9 g/dL (14.0-18.0); MCH 35.6 PG (27-31); MCHC 34.4 g/dL (33-37); MCV 103.6 FL (81-99); MPV 11.5 FL (7.4-10.4); RBC 3.06 XMIL (4.7-6.1); RDW 14.5 % (11.5-14.5); WBC 2.04 X1000 (4.8-10.8)
[2019-11-22] MEDS: PROTONIX PO SCH (06:03)
[2019-11-22 06:07] LABS: ALBUMIN 2.9 g/dL (3.5-5.0); CALCIUM 7.8 mg/dL (8.8-10.2); CREATININE 6.5 mg/dL (0.7-1.2); PHOSPHORUS 4.8 mg/dL (2.7-4.5); POTASSIUM 4.6 mmol/L (3.5-5.1)
[2019-11-22 08:45] LABS: BLOOD TYPE ARTERIAL; SAMPLE BLOOD
[2019-11-22 08:49] LABS: HCO3-(ACT) 26.5 mmoll (20.0-26.0); PO2(98.6) 96 mmHg (60-100); pH(98.6) 7.26 (7.35-7.45)
[2019-11-22 08:50] LABS: ALLEN TEST YES; MODALITY CANNULA
[2019-11-22 08:52] LABS: PCO2(98.6) 58 mmHg (35-45)
[2019-11-22] MEDS: TEGRETOL PO SCH ×2 (11:01→20:59)
[2019-11-22] MEDS: EFFIENT PO SCH (11:01)
[2019-11-22] MEDS: PERICOLACE PO SCH ×2 (11:01→21:00)
[2019-11-22] MEDS: COLACE PO SCH ×2 (11:01→20:59)
[2019-11-22] MEDS: LACTULOSE PO SCH ×2 (11:01→21:02)
[2019-11-22] MEDS: VITAMIN B-12 PO SCH (11:01)
[2019-11-22] MEDS: ASPIRIN PO SCH (11:02)
[2019-11-22] MEDS: MIRALAX PO SCH ×2 (11:02→21:02)
--- NOTE | 2019-11-22 12:11 | PROGRESS NOTE ---
DATE: 11/22/2019 SUBJECTIVE: The patient is sitting up in bed resting comfortably. He states that he has not had a bowel movement yet. He is refusing the Dulcolax suppository. OBJECTIVE: Vital Signs: Temperature 97.4 degrees, blood pressure 116/51, heart rate 72, respirations 20, O2 saturation 98% on 3 L nasal cannula. General: This is a chronically ill- appearing elderly male sitting up in bed in no acute distress. Heart: S1, S2 normal. Regular rate and rhythm. Lungs: Equal air entry bilaterally. Diminished breath sounds in the left lung base. No wheezing, no rales. Abdomen: Positive bowel sounds. Soft, nontender, nondistended. Extremities: No edema, no cyanosis. Neurologic: The patient is alert and oriented x4. LABORATORY DATA: White blood cell count 2, hemoglobin 10, hematocrit 31, platelets 75,000. ABG: pH of 7.26, pCO2 58, PO2 96, bicarb 26. Sodium 137, potassium 4.6, chloride 98, CO2 24, BUN 57, creatinine 6.5, glucose 104, calcium 7.8. ASSESSMENT AND PLAN: 1. Acute hypoxemic and hypercapnic respiratory failure. Attempts were made to wean the patient off supplemental oxygen. However, his oxygen saturation drops down to around 85% when decreased to 2 L. The patient states that he has sleep apnea, but he does not use his CPAP machine at home. We will consult with the product tester fiberglass for further recommendations. We will also start the patient on BiPAP at bedtime. 2. Acute bronchitis. Improved. Continue on Levaquin, O2, and bronchodilator therapy. 3. Toxic metabolic encephalopathy, resolved. Likely related to a one-time dose of Lyrica prior to admission. 4. Chronic kidney disease stage V, stable. Management as per the aircraft engine installer. 5. Bilateral pleural effusions. Stable. 6. Constipation. Continue on laxative therapy. 7. Pancytopenia. Unchanged. The patient's counts are stable. Hematology is following. 8. Obesity. Aware. 9. Coronary artery disease status post stent. Continue on the current cardiac medications. 10. Obstructive sleep apnea. Aware. 11. Deconditioning. Continue with physical therapy. 12. Disposition. [facility] is assisting with inpatient rehab placement. We will continue to monitor the patient in the hospital setting until a bed is available. cc: Estella Estrada MD MTDD
[2019-11-22] MEDS: DUONEB (A & A) INH SCH ×3 (13:13→22:53)
--- NOTE | 2019-11-22 14:03 | NEPHROLOGY PROGRESS NOTE ---
DATE: 11/22/2019 SUBJECTIVE: He is feeling well by his estimation. Anticipating rehab placement. He is still requiring supplemental oxygen. OBJECTIVE: Vital Signs: Blood pressure 116/51, heart rate 72, respirations 20, afebrile. General: No acute distress. Skin is warm and dry. Conjunctivae are pink. Neck veins are not distended. Cardiovascular: Heart is regular. No gallops or murmurs. Lungs are equal. No crackles. Abdomen: Soft, nontender. Bowel sounds present. Extremities: No edema, clubbing or cyanosis. IMPRESSION: Chronic kidney disease 5D. He will have his routine hemodialysis treatment today. Electrolytes/acid base/anemia in target. We will challenge his dry weight as his blood pressure allows. cc: Randall Valderrama MD
[2019-11-22] MEDS: FOLIC ACID PO SCH (14:19)
--- NOTE | 2019-11-22 15:17 | Diag Imaging Result Doc PS360 ---
FLAT/UPRIGHT ABD/1 VIEW CHEST - 11/22/2019 INDICATION: hypoxia/constipation TECHNIQUE: COMPARISON: 11/20/2019 FINDINGS: Stable opacification of the left lung base. Heart size remains normal. No new infiltrates. The right lung appears clear. There is a nonobstructive bowel gas pattern. No free air or abnormal calcifications. There are cholecystectomy clips. IMPRESSION: No change in the chest. No acute process in the abdomen. Electronically signed by Basil Arce 11/22/2019 3:14 PM
[2019-11-22] MEDS ORDERED: DULCOLAX PR ONE (15:34)
[2019-11-22] MEDS ORDERED: NS 2,000 ML MISC PRN (16:32)
[2019-11-22] MEDS ORDERED: HEPARIN IV PRN (16:32)
--- NOTE | 2019-11-22 16:58 | HEMO/ONC PROGRESS NOTE ---
DATE: 11/22/2019 SUBJECTIVE: We have reviewed the labs that we have ordered. It appears that the patient likely has pancytopenia secondary to medications. He was also found to be folate-deficient. He has been started on folic acid. May consider changing medications if his counts were to worsen. Dictated by RON Morrow for Maya Caicedo MD cc: Maya Caicedo MD
--- NOTE | 2019-11-22 19:53 | PULMONOLOGY CONSULTATION ---
DATE: 11/22/2019 REQUESTING CLINICIAN: Dr. Estrada. REASON FOR CONSULTATION: Acute hypercapnic respiratory failure. HISTORY OF PRESENT ILLNESS: Mr. Little is an 89-year-old white male with a 30 pack-year history for tobacco (nonsmoker for 30 years), end-stage renal disease, obstructive sleep apnea with noncompliance, who recently received Lyrica for peripheral neuropathy/pain. He reports that he "went out of his mind" and started having active hallucinations. He missed 2 dialysis by his report. He was evaluated by 1 emergency room and diagnosed with dehydration and was reevaluated at [facility] 11/18/2019 with hallucinations and muscle jerks along with generalized weakness. His Lyrica was discontinued and his hallucinations have subsequently resolved. He has evidence of hypoxemic respiratory failure during this hospitalization and has required nasal cannula. He has not had evidence of respiratory distress. He did undergo a CT scan of the thorax 11/20/2019 which revealed patchy atelectasis at the left base with small pleural effusions and cardiomegaly. He denies history of prior lung disease. PAST MEDICAL HISTORY: 1. End-stage renal disease on hemodialysis. 2. Coronary artery disease with prior stent placement. 3. Prostate cancer. 4. Dyslipidemia. 5. Obstructive sleep apnea with noncompliance to CPAP machine. 6. Hypertension. SOCIAL HISTORY: The patient is and lives with his . He smoked for greater than 30 years 1 pack per day before discontinuing tobacco in the 80s. No alcohol use. FAMILY HISTORY: Noncontributory. REVIEW OF SYSTEMS: Notable for details outlined in the HPI. He reports he is returning to his baseline. OBJECTIVE: Vital Signs: Blood pressure 116/51, heart rate 72, respiratory rate 20, oxygen saturation 98% on 3 L per nasal cannula. HEENT: Pupils are equal and reactive. Oropharynx is clear. Neck: Supple. Chest: Reveals good air entry bilaterally. No wheezing or rhonchi. Abdomen: Soft. Extremities: Reveal trace edema. LABORATORIES: Arterial blood gas on 11/18/2019 reveals a pH 7.30, pCO2 of 58, pO2 of 97. Arterial blood gas today reveals a pH 7.26, pCO2 of 58, PO2 of 96. IMPRESSION: 89-year-old with 1. Hypoxemic respiratory failure. 2. Hypercapnic respiratory failure. 3. Thirty pack-year history for tobacco. 4. Pleural effusions. 5. Encephalopathy due to drug reaction. DISCUSSION: 89-year-old with problems outlined above. The patient does not have prior arterial blood gases in the system to help determine the chronicity of his current ventilatory status. The patient does have history of COPD and has small pleural effusions but does not have evidence of ventilatory limitation on exam. He can increase his respiratory rate and subjectively increase his tidal volume on command. He is not breathless. He does not have increased work of breathing. I suspect that he has an altered ventilatory drive. This may be due to his age, recent electrolyte disturbance with missing dialysis, or less likely from the Lyrica. He appears to be in no distress. He may require oxygen at time of discharge. RECOMMENDATIONS: 1. Continue oxygen for hypoxemic respiratory failure. 2. Evaluate for oxygen needs at the time of discharge. 3. Nocturnal BiPAP may be of benefit, however, he is quite clear that he cannot tolerate and will not use this device. cc: Jelani Hill MD
[2019-11-22] MEDS: REMERON PO SCH (21:00)
[2019-11-22] MEDS: MELATONIN PO SCH (21:02)
[2019-11-22] MEDS: DULCOLAX PR SCH (21:03)
[2019-11-22] MEDS: LEVAQUIN 500 MG/D5W 500 MG/100 ML IVPB IV SCH (21:46)
[2019-11-23] MEDS: DUONEB (A & A) INH SCH ×4 (03:19→21:33)
[2019-11-23 05:43] LABS: HEMATOCRIT 32.8 % (42.0-52.0); HEMOGLOBIN 10.4 g/dL (14.0-18.0); MCHC 31.7 g/dL (33-37); MCV 104.1 FL (81-99); MPV 11.5 FL (7.4-10.4); RBC 3.15 XMIL (4.7-6.1); RDW 14.5 % (11.5-14.5); WBC 2.35 X1000 (4.8-10.8)
[2019-11-23 05:55] LABS: ALBUMIN 2.7 g/dL (3.5-5.0); CALCIUM 7.7 mg/dL (8.8-10.2); CREATININE 4.9 mg/dL (0.7-1.2); PHOSPHORUS 4.1 mg/dL (2.7-4.5); POTASSIUM 4.3 mmol/L (3.5-5.1)
[2019-11-23] MEDS: PROTONIX PO SCH (06:06)
[2019-11-23] MEDS: EFFIENT PO SCH (08:46)
[2019-11-23] MEDS: TEGRETOL PO SCH ×2 (08:46→21:00)
[2019-11-23] MEDS: FOLIC ACID PO SCH (08:47)
[2019-11-23] MEDS: LACTULOSE PO SCH ×2 (08:47→20:59)
[2019-11-23] MEDS: ASPIRIN PO SCH (08:47)
[2019-11-23] MEDS: PERICOLACE PO SCH ×2 (08:47→21:00)
[2019-11-23] MEDS: MIRALAX PO SCH ×2 (08:47→20:59)
[2019-11-23] MEDS: COLACE PO SCH ×2 (08:47→20:59)
[2019-11-23] MEDS: VITAMIN B-12 PO SCH (08:47)
--- NOTE | 2019-11-23 13:42 | NEPHROLOGY PROGRESS NOTE ---
DATE: 11/23/2019 SUBJECTIVE: We had some difficulty cannulating his fistula yesterday. He has a hematoma causing some compression of the fistula just distal to the antecubital fossa. We were able to cannulate both proximally and distally to perform dialysis. Feels well today. OBJECTIVE: Vital Signs: Blood pressure 127/59, heart rate 87, respiration 18, afebrile. General: No acute distress. Skin: Warm and dry. Neck: Neck veins are not distended. Heart: Regular. No gallops. Lungs: Equal. No crackles. Abdomen: Soft, nontender. Bowel sounds are present. Extremities: No edema. IMPRESSION: 1. Chronic kidney disease 5D. His next routine dialysis will be Monday. 2. Electrolytes/acid base/anemia/hypertension, all in target. cc: Randall Valderrama MD
--- NOTE | 2019-11-23 15:24 | Extremity Venous Study ---
PROCEDURE NAME: Hemodialysis Access U/S L Arm - 11/22/2019 REQUESTING PHYSICIAN: Dr. Valderrama. SILVER DESIGNER: Celia. INDICATION: Difficulty sticking during dialysis. EQUIPMENT: [employer] E9 Ultrasound System with a 9L-D transducer. FINDINGS: A limited ultrasound was done of the upper extremity for need for marking for dialysis. There was stenosis present in the proximal forearm fistula at an area of a large hematoma. There was flow noted throughout the fistula, and per the player piano technician's note, external skin markings were done to facilitate insertion of the cannula. INTERPRETATION: Patent left upper extremity radiocephalic arteriovenous fistula, although hematoma is causing some compression. cc: MD Randall Turner MD
--- NOTE | 2019-11-23 16:57 | PROGRESS NOTE ---
DATE: 11/23/2019 SUBJECTIVE: The patient is resting comfortably in bed. He states that he had several bowel movements last night. The patient also had a syncopal episode overnight while getting up from the bedside commode. OBJECTIVE: Vital Signs: Temperature 98.7 degrees, blood pressure 119/53, heart rate 88, respirations 18, O2 saturation is 100% on 4 L nasal cannula. Intake 620; output 1 L. General: This is a chronically ill-appearing elderly male, lying in bed in no acute distress. Heart: S1, S2 normal. Regular rate and rhythm. Lungs: Equal air entry bilaterally. No wheezing. No rales. Abdomen: Positive bowel sounds. Soft, nontender, nondistended. Extremities: No edema. No cyanosis. No calf tenderness. Neurologic: The patient is alert and oriented x4. LABS: White blood cell count 2.3, hemoglobin 10, hematocrit 32, platelets 67. Sodium 137, potassium 4.3, chloride 98, CO2 26. BUN 38, creatinine 4.9, glucose 120, calcium 7.7, phosphorus 4.1, albumin 2.7. ASSESSMENT AND PLAN: 1. Chronic hypoxemic and hypercapnic respiratory failure. We will continue with supplemental oxygen. 2. Acute bronchitis. Continue with Levaquin and bronchodilator therapy. 3. Toxic metabolic encephalopathy. Resolved. 4. Bilateral pleural effusions. Stable. 5. Chronic kidney disease stage 5. Stable. Management as per the housekeeper manager. 6. Constipation. Improved. Continue with the current laxative regimen. 7. Pancytopenia. Stable. Continue to monitor for improvement. 8. Obesity. Aware. 9. Coronary artery disease status post stent. Continue on the current cardiac medications. 10. Deconditioning. Continue with physical therapy. 11. Disposition: We are currently awaiting insurance approval for the patient to be discharged to inpatient rehabilitation in [place]. cc: Estella Estrada MD MTDD
--- NOTE | 2019-11-23 18:56 | PULMONOLOGY PROGRESS NOTE ---
DATE: 11/23/2019 SUBJECTIVE: The patient is awake, alert, and conversant and lying in bed. He has nasal cannula in place. He denies shortness of breath. He denies cough or sputum production. OBJECTIVE: Vital Signs: The patient has been afebrile for the last 24 hours. Blood pressure 119/53, heart rate 88, respiratory rate 18, oxygen saturation 100% on 4 L per nasal cannula. HEENT: Pupils are equal and reactive. Oropharynx appears clear. Neck: Supple. Chest: Reveals decreased breath sounds in the lung bases. Cardiac: S1-S2. Abdomen: Soft and without hepatosplenomegaly. Extremities: Reveal trace edema. LABORATORIES: White blood count 2.35, hemoglobin 10.4, platelet count 67,000. Sodium 137, potassium 4.3, chloride 98, bicarbonate 26, BUN 38, creatinine 4.9. IMPRESSION: 89-year-old with 1. A 30 pack-year history for tobacco. 2. Small to moderate bilateral effusions. 3. Hypoxemic and hypercapnic respiratory failure. 4. Recent encephalopathy related to drug reaction. DISCUSSION: 89-year-old with problems outlined above. I suspect that he has a component of chronicity to his hypercapnic respiratory failure and he may have a component of chronic hypoxemic respiratory failure as well. He may require oxygen at the time of discharge. PLAN: 1. Continue oxygen for hypoxemic respiratory failure. 2. BiPAP with evidence of respiratory distress. 3. Follow up chest x-ray and arterial blood gas tomorrow. cc: Jelani Hill MD
[2019-11-23] MEDS: DULCOLAX PR SCH (20:59)
[2019-11-23] MEDS: REMERON PO SCH (21:00)
[2019-11-23] MEDS: MELATONIN PO SCH (21:00)
[2019-11-24] MEDS: DUONEB (A & A) INH SCH ×4 (03:30→22:00)
[2019-11-24 03:54] LABS: ALLEN TEST YES; BLOOD TYPE ARTERIAL; HCO3-(ACT) 25.7 mmoll (20.0-26.0); METHB 0.9 % (0.0-1.5); O2(CT) 13.5 mL/dL (15.0-23.0); O2HB 96.5 % (95.0-99.0); PCO2(98.6) 46 mmHg (35-45); PO2(98.6) 100 mmHg (60-100); SAMPLE BLOOD; SAO2 98.8 % (95.0-100.0); THB 9.8 g/dL (11.5-17.4); pH(98.6) 7.37 (7.35-7.45)
[2019-11-24 03:55] LABS: MODALITY CANNULA
[2019-11-24] MEDS: PROTONIX PO SCH (06:08)
[2019-11-24 06:10] LABS: ALBUMIN 2.6 g/dL (3.5-5.0); CALCIUM 7.9 mg/dL (8.8-10.2); PHOSPHORUS 4.8 mg/dL (2.7-4.5); POTASSIUM 4.3 mmol/L (3.5-5.1)
[2019-11-24 06:17] LABS: CREATININE 5.9 mg/dL (0.7-1.2)
[2019-11-24] MEDS: MIRALAX PO SCH ×2 (09:52→21:37)
[2019-11-24] MEDS: LACTULOSE PO SCH ×2 (09:52→21:36)
[2019-11-24] MEDS: TEGRETOL PO SCH ×2 (09:52→21:36)
[2019-11-24] MEDS: VITAMIN B-12 PO SCH (09:52)
[2019-11-24] MEDS: FOLIC ACID PO SCH (09:52)
[2019-11-24] MEDS: EFFIENT PO SCH (09:52)
[2019-11-24] MEDS: PERICOLACE PO SCH ×2 (09:52→21:36)
[2019-11-24] MEDS: ASPIRIN PO SCH (09:52)
[2019-11-24] MEDS: COLACE PO SCH ×2 (09:52→21:35)
--- NOTE | 2019-11-24 11:39 | Diag Imaging Result Doc PS360 ---
CHEST-PORTABLE - 11/24/2019 INDICATION: abnormal exam COMPARISON: 11/22/2019 FINDINGS: Stable indeterminate opacification of the left lung base, consistent with any combination of effusion, atelectasis or infiltrate. Stable trace right pleural effusion as well. Heart size remains borderline enlarged. Pulmonary vascularity remains normal. IMPRESSION: No change from prior. Electronically signed by Basil Arce 11/24/2019 11:37 AM
--- NOTE | 2019-11-24 15:53 | PROGRESS NOTE ---
DATE: 11/24/2019 SUBJECTIVE: The patient is sitting up in bed resting comfortably. He has no complaints at this time. OBJECTIVE: Vital Signs: Temperature 98 degrees, blood pressure 109/54, heart rate 89, respirations 20, O2 saturations 100% on 3 L nasal cannula. General: This is a chronically ill- appearing elderly male sitting up in bed in no acute distress. Heart: S1, S2 normal. Regular rate and rhythm. Lungs: Equal air entry bilaterally. No wheezing. No rales. Abdomen: Positive bowel sounds. Soft, nontender, nondistended. Extremities: No edema, no cyanosis. Neurologic: The patient is alert and oriented x3. LABS: Sodium 135, potassium 4.3, chloride 96, CO2 21, BUN 50, creatinine 5.9, glucose 108, phosphorus 4.8. Chest x-ray shows opacification of the left lung base. ASSESSMENT AND PLAN: 1. Chronic hypoxemic and hypercapnic respiratory failure. Continue with supplemental oxygen. 2. Acute bronchitis. Continue with Levaquin and bronchodilator therapy. 3. Toxic metabolic encephalopathy. Resolved. 4. Chronic kidney disease stage 5. Management as per the employee adviser. 5. Bilateral pleural effusions. Stable. 6. Constipation. Improved. 7. Pancytopenia. Stable. 8. Coronary artery disease status post stent. Continue on the current cardiac medications. 9. Obesity. Aware. 10. Deconditioning. Continue with physical therapy. 11. Disposition. [employer] is working on inpatient rehab placement for the patient. cc: Estella Estrada MD
[2019-11-24] MEDS: REMERON PO SCH (21:36)
[2019-11-24] MEDS: MELATONIN PO SCH (21:36)
[2019-11-24] MEDS: DULCOLAX PR SCH (21:37)
[2019-11-24] MEDS: LEVAQUIN 500 MG/D5W 500 MG/100 ML IVPB IV SCH (21:37)
--- NOTE | 2019-11-25 02:35 | PULMONOLOGY PROGRESS NOTE ---
DATE: 11/24/2019 SUBJECTIVE: The patient is awake, alert, and conversant. He reports he feels better and is approaching his baseline. He denies shortness of breath. OBJECTIVE: Vital Signs: The patient has been afebrile for the last 24 hours. Blood pressure 136/55, heart rate 81, respiratory rate 16, oxygen saturation 100% on 2.5 L. HEENT: Pupils are equal and reactive. Oropharynx appears clear. Neck: Supple. Chest: Reveals decreased breath sounds in the lung bases. Cardiac: S1, S2. Abdomen: Soft and without hepatosplenomegaly. Extremities: Without edema. LABORATORIES: Arterial blood gas reveals a pH 7.37, pCO2 of 46, pO2 of 100. Chest x-ray reveals left greater than right basilar effusion. IMPRESSION: An 89-year-old with: 1. Thirty pack-year history for tobacco. 2. Small bilateral effusions. 3. Hypoxemic and hypercapnic respiratory failure. His hypercapnia is improving. 4. Recent encephalopathy related to drug reaction. DISCUSSION: An 89-year-old with problems outlined above. The patient is returning to his baseline. He does report that his oxygen saturation has been checked during dialysis and is usually in the upper 90s. Hopefully, with dialysis tomorrow and returning to his baseline he can be weaned off oxygen. PLAN: 1. Continue oxygen. 2. Evaluate for possible short-term oxygen at discharge. cc: Jelani Hill MD
[2019-11-25] MEDS: DUONEB (A & A) INH SCH ×4 (03:35→21:55)
[2019-11-25 05:37] LABS: BASO# 0.01 X1000 (0.0-0.2); BASO% 0.4 % (0.0-0.8); EOS# 0.09 X1000 (0.0-0.7); EOS% 3.5 % (0.0-10.0); HEMATOCRIT 29.4 % (42.0-52.0); HEMOGLOBIN 9.3 g/dL (14.0-18.0); IMM GRAN# 0.03 X1000 (0.0-0.04); IMM GRAN% 1.2 % (0.0-0.5); LYMPH# 0.73 X1000 (1.2-3.4); LYMPH% 28.2 % (20.5-51.1); MCH 32.9 PG (27-31); MCHC 31.6 g/dL (33-37); MCV 103.9 FL (81-99); MONO# 0.25 X1000 (0.11-0.59); MONO% 9.7 % (1.7-9.3); MPV 11.2 FL (7.4-10.4); NEUT# 1.48 X1000 (1.4-6.5); PLT 73 X1000 (130-400); RBC 2.83 XMIL (4.7-6.1); RDW 14.4 % (11.5-14.5); WBC 2.59 X1000 (4.8-10.8)
[2019-11-25 06:02] LABS: ALBUMIN 2.5 g/dL (3.5-5.0); CALCIUM 7.9 mg/dL (8.8-10.2); CREATININE 6.6 mg/dL (0.7-1.2); PHOSPHORUS 5.8 mg/dL (2.7-4.5); POTASSIUM 4.5 mmol/L (3.5-5.1)
[2019-11-25] MEDS: PROTONIX PO SCH (06:04)
[2019-11-25] MEDS ORDERED: NS 2,000 ML MISC PRN (08:48)
[2019-11-25] MEDS ORDERED: HEPARIN IV PRN (08:48)
[2019-11-25] MEDS: LACTULOSE PO SCH ×2 (09:15→21:39)
[2019-11-25] MEDS: VITAMIN B-12 PO SCH (09:15)
[2019-11-25] MEDS: MIRALAX PO SCH ×2 (09:15→21:41)
[2019-11-25] MEDS: ASPIRIN PO SCH (09:15)
[2019-11-25] MEDS: EFFIENT PO SCH (09:15)
[2019-11-25] MEDS: PERICOLACE PO SCH ×2 (09:15→21:40)
[2019-11-25] MEDS: FOLIC ACID PO SCH (09:15)
[2019-11-25] MEDS: TEGRETOL PO SCH ×2 (09:15→21:40)
[2019-11-25] MEDS: COLACE PO SCH ×2 (09:16→21:40)
[2019-11-25] MEDS ORDERED: CALMOSEPTINE OINTMENT TOP PRN (10:33)
--- NOTE | 2019-11-25 14:42 | PROVIDER PROGRESS NOTE ---
Progress Note Subjective: voices feeling ok after having a restless night. Objective: temperature 98.1, pulse 79, respirations 18, blood pressure 115/48, 02 sat 97% on 3 L nasal cannula. General: Elderly white male lying in bed in no acute distress HEENT: Normocephalic, atraumatic, pupils equal and reactive, mucous membranes dry, trachea midline. Skin: warm and dry Neck: supple, no JVD Cardiovascular: S1S2, Regular rate and rhythm. No murmurs or gallops. Respiratory: clear with equal entry Abdomen: soft, nondistended, nontender. Bowel sounds present : non inspected Extremities: 2+ pitting edema to left lower extremity and 1+ to right lower extremity. Neurological: alert and oriented to person, place, and time. Labs: WBC 2.59, hemoglobin 9.3, hematocrit 29.4, platelet count 73, sodium 135, potassium 4.5, chloride 97, carbon dioxide 21, BUN 58, creatinine 6.6. Inout 540 output 350. Impression: Chronic kidney disease stage 5D. He will receive his routine hemodialysis treatment today when access is achieved. There is a hematoma over the top of fistula. Waiting to see if it dissipates on its own and if there is a stenosis in the fistula. Blood pressure. In target. Fluid volume. Expanded. Due to receive his hemodialysis treatment today. Anemia. Low but stable. Does not meet the criteria for transfusion. Pancytopenia. Fu on board. Electrolytes and acid base balance. Corrected with hemodialysis today. Nutrition. Adequate. Ambulation. Up with therapy. Medication review.
--- NOTE | 2019-11-25 16:54 | PROGRESS NOTE ---
DATE: 11/25/2019 SUBJECTIVE: The patient is resting comfortably. He states that his fistula was not working properly for him to undergo dialysis. OBJECTIVE: Vital Signs: Temperature 97.6 degrees, blood pressure 132/57, heart rate 79, respirations 19, O2 saturations 98% on room air. General: This is a chronically ill-appearing, elderly male sitting in bed in no acute distress. Heart: S1, S2 normal. Regular rate and rhythm. Lungs: Clear to auscultation bilaterally. Abdomen: Positive bowel sounds. Soft, nontender, nondistended. Extremities: No edema. No cyanosis. No calf tenderness. Neurologic: The patient is alert and oriented x4. LABS: White blood cell count 2.5, hemoglobin 9.3, hematocrit 29, platelets 73,000. Sodium 135, potassium 4.5, chloride 97, CO2 of 21, BUN 58, creatinine 6.6, glucose 106, phosphorus 5.8. ASSESSMENT AND PLAN: 1. Chronic hypoxemic and hypercapnic respiratory failure. Continue to try and wean the patient off of supplemental oxygen. 2. Acute bronchitis. Resolved. We will discontinue the antibiotic therapy. 3. Toxic metabolic encephalopathy. Resolved. 4. Malfunctioning fistula. The patient is scheduled to have dialysis access placed tomorrow. 5. Chronic kidney disease stage 5. Management as per the learning services coordinator. 6. Pancytopenia. Stable. 7. Coronary artery disease status post stent. Continue on the current cardiac medications. 8. Obesity. Aware. 9. Deconditioning. Continue with physical therapy. 10. Disposition. Plastics Factory Worker is working on inpatient rehab placement for the patient. We are waiting on insurance approval for discharge to [facility] in [place]. cc: Estella Estrada MD MTDD
[2019-11-25] MEDS: MELATONIN PO SCH (21:39)
[2019-11-25] MEDS: DULCOLAX PR SCH (21:43)
[2019-11-25] MEDS: REMERON PO SCH (21:46)
[2019-11-26] MEDS: DUONEB (A & A) INH SCH ×4 (02:53→21:38)
[2019-11-26 05:59] LABS: ALBUMIN 2.9 g/dL (3.5-5.0); CALCIUM 7.6 mg/dL (8.8-10.2); CREATININE 7.1 mg/dL (0.7-1.2); POTASSIUM 5.4 mmol/L (3.5-5.1)
[2019-11-26] MEDS: PROTONIX PO SCH (06:15)
[2019-11-26 06:20] LABS: BASO# 0.01 X1000 (0.0-0.2); BASO% 0.4 % (0.0-0.8); EOS# 0.09 X1000 (0.0-0.7); EOS% 3.6 % (0.0-10.0); HEMATOCRIT 28.9 % (42.0-52.0); HEMOGLOBIN 9.1 g/dL (14.0-18.0); LYMPH# 0.71 X1000 (1.2-3.4); LYMPH% 28.6 % (20.5-51.1); MCH 32.2 PG (27-31); MCHC 31.5 g/dL (33-37); MCV 102.1 FL (81-99); MONO# 0.26 X1000 (0.11-0.59); MONO% 10.5 % (1.7-9.3); MPV 10.3 FL (7.4-10.4); NEUT# 1.41 X1000 (1.4-6.5); NEUT% 56.9 % (42.2-75.2); PLT 88 X1000 (130-400); RBC 2.83 XMIL (4.7-6.1); RDW 14.5 % (11.5-14.5); WBC 2.48 X1000 (4.8-10.8)
[2019-11-26] MEDS ORDERED: HUMULIN R IV ONE (06:35)
[2019-11-26] MEDS ORDERED: TIGHT: 0.2 ML/HR FOR DIALYSIS MISC PRN (06:35)
[2019-11-26] MEDS ORDERED: D50W SYRINGE IV ONE (06:35)
[2019-11-26] MEDS ORDERED: HEPARIN IV PRN (06:35)
[2019-11-26] MEDS ORDERED: NS 2,000 ML MISC PRN (06:35)
[2019-11-26] MEDS: ALBUTEROL NEB INH ONE ×2 (06:46→08:14)
[2019-11-26] MEDS ORDERED: HEPARIN ONE ×2 (07:20→07:23)
[2019-11-26] MEDS ORDERED: NS 250 ML ONE (07:21)
[2019-11-26] MEDS ORDERED: XYLOCAINE 1%/EPI 1:100,000 ONE (07:23)
[2019-11-26] MEDS ORDERED: ALBUTEROL 0.5% INH CONC FOR HYPERKALEMIA INH ONE (07:25)
[2019-11-26] MEDS ORDERED: XYLOCAINE-MPF 2% ONE (08:28)
[2019-11-26] MEDS ORDERED: AMIDATE ONE (08:29)
[2019-11-26] MEDS ORDERED: ZOFRAN ONE (08:30)
[2019-11-26] MEDS ORDERED: SODIUM CHLORIDE 0.9% 10 ML ONE (08:54)
[2019-11-26] MEDS ORDERED: NEO-SYNEPHRINE ONE (08:54)
--- NOTE | 2019-11-26 10:00 | OPERATIVE NOTE ---
PROCEDURE DATE: 11/26/2019 PREOPERATIVE DIAGNOSES: 1. End-stage renal disease requiring chronic hemodialysis. 2. Nonfunctional left upper extremity arteriovenous fistula. POSTOPERATIVE DIAGNOSES: 1. End-stage renal disease requiring chronic hemodialysis. 2. Nonfunctional left upper extremity arteriovenous fistula. PRINCIPAL PROCEDURE: Placement of a right internal jugular PermCath using ultrasound and fluoroscopy. SURGEON: Karen Salgado MD ANESTHESIA: General using LMA in addition to local anesthetic. ESTIMATED BLOOD LOSS: 10 mL. DRAINS: None. INDICATIONS: Mr. Hugh Little is an 89-year-old white male on dialysis. He has a left arm AV fistula, which is difficult to access, and he has some hematomas along it, and we felt that he needed temporary access to allow his left arm to heal and his fistula to mature so that he can more easily to be accessed. We were asked to place a PermCath. DESCRIPTION OF PROCEDURE: The patient was brought to the operating room, received general anesthesia, and was ventilated using an LMA. His right neck, shoulder, and anterior chest were prepped and draped within a sterile field. He was already on IV Levaquin. We used an Ioban on the skin. I began the procedure by using ultrasound to identify the right internal jugular vein between the 2 heads of the right sternocleidomastoid muscle. We used local anesthetic using ultrasound guidance in this area, and then I used an 18-gauge needle to access the right internal jugular vein on the first stick using ultrasound. A guidewire was placed through this needle into the right side of the heart, and its position was checked with fluoroscopy. The needle was removed. I made the incision at the exit site of the guidewire at the base of the right neck with 11 blade scalpel. I made another incision on the anterior right chest, and I used a blunt tunneler and a precurved PermCath and tunneled this PermCath from the chest incision to the neck incision. I placed sequential dilators over the guidewire, and then I placed a dilator and sheath over the guidewire into the superior vena cava. The dilator and guidewire were removed, and through the sheath I placed the distal end of our precurved PermCath and directed it into the superior vena cava with the help of fluoroscopy. We felt it was in good position. It was functioning well, and we flushed it with heparin saline. I secured the catheter at its exit site anterior right chest with two 2-0 nylon stitches, and then I closed the small incision base of right neck with a 4-0 Monocryl subcuticular stitch. Steri-Strips were applied to this neck incision, and then a dry dressing was applied to the exit site of the catheter. He tolerated the procedure well, with plans for him to go the recovery room and then return to his room on the first floor. cc: Karen Salgado MD
[2019-11-26] MEDS ORDERED: NS 500 ML IV SCH (11:00)
--- NOTE | 2019-11-26 11:36 | PROGRESS NOTE ---
DATE: 11/26/2019 INTERVAL HISTORY: No acute events overnight. Mr. Little underwent a right-sided tunneled dialysis catheter placement this morning, which he tolerated well. Postprocedure, however, he was hypotensive with predominantly diastolic blood pressure being in 30s to 40s. His systolic has been in the 90s to low 100s. SUBJECTIVE: Mr. Little is drowsy, but easily arousable. He denies any complaints. He denies any chest pain, shortness of breath, or cough. He denies any nausea, vomiting, abdominal pain. He says that he had a lower extremity left ultrasound done, the results of which are pending. OBJECTIVE: Vital Signs: Currently, temperature of 97 degrees, pulse 83, respiratory rate 14, his blood pressure is 105/40 at the moment with MAP of 55. HEENT: Oral cavity is dry. Lungs: Air entry bilaterally equal. No wheeze or rhonchi. Inspiratory crackles at bilateral infrascapular region. Cardiovascular: S1, S2 normal. Systolic murmur at right second intercostal space. No rub or gallop. Abdomen: Soft, nontender. Extremities: He has bilateral lower extremity edema, predominantly affecting left lower extremity. He has a left forearm AV fistula, and there is a superficial hematoma around it. He has right-sided chest dialysis catheter. His pulses are bilaterally equal and adequate. Input and output suggest that he had a bowel movement yesterday. Neurologic: He is drowsy, but easily arousable, follows simple commands. LABORATORY DATA: He does have pancytopenia, which is stable, hyponatremia, hypochloremia. He also has hyperkalemia, and he received treatment for it in the morning time with albuterol insulin D50. ASSESSMENT AND PLAN: 1. Acute hypercarbic respiratory failure on presentation leading to acute encephalopathy. This could be also in the setting of use of some of the sedative medications he was taking at home, including mirtazapine, and missing hemodialysis. Now stable. He is breathing well on room air. On admission, head CT did not have any acute pathology. Continue oxygenation to maintain saturation of more than 92%. 2. Acute bronchitis, which could have contributed to his acute hypercarbic respiratory failure. There is no documented history of chronic obstructive pulmonary disease though. He is status post antibiotic therapy. 3. Hypotension, along with hyponatremia, hypochloremia, and hyperkalemia. His hyperkalemia was treated. His hypotension is likely related to procedure he underwent, and likely sedation he may have received. I will give him 500 mL of normal saline, and I advised the nurse to check blood glucose and blood pressure. 4. Acute hypoxic respiratory failure. Continue oxygenation. Chest x-ray on 11/24/2019 had atelectasis and effusion bilaterally, likely in the setting of his end-stage renal disease, which could be contributing to his hypoxia. 5. Chronic kidney disease stage 5, on Monday, Monday, Monday hemodialysis. His arteriovenous fistula on the left forearm was malfunctioning, and he received a PermCath tunneled dialysis catheter on the right chest. Appreciate Nephrology recommendation. 6. Pancytopenia, currently stable. He would need outpatient Oncology evaluation. 7. Coronary artery disease, status post stent in 2017. I will resume his aspirin and prasugrel tomorrow. 8. Disposition. The patient has rehab bed availability today. I am awaiting recommendation from Nephrology team before planning discharge, to make sure his tunneled dialysis catheter is functioning. I am anticipating discharge either today or tomorrow. Plan of care discussed with the patient. His questions have been answered. cc: Jhonatan Segura MD
[2019-11-26] MEDS: COLACE PO SCH ×3 (13:05→21:10)
[2019-11-26] MEDS: FOLIC ACID PO SCH (13:06)
[2019-11-26] MEDS: MIRALAX PO SCH ×2 (13:06→21:08)
[2019-11-26] MEDS: LACTULOSE PO SCH ×2 (13:06→21:09)
[2019-11-26] MEDS: PERICOLACE PO SCH ×2 (13:06→21:06)
[2019-11-26] MEDS: VITAMIN B-12 PO SCH (13:06)
[2019-11-26] MEDS: TEGRETOL PO SCH ×2 (13:06→21:08)
--- NOTE | 2019-11-26 16:02 | NEPHROLOGY PROGRESS NOTE ---
DATE: 11/26/2019 SUBJECTIVE: He will have a tunneled catheter today. No new complaints except he slept very poorly last night. OBJECTIVE: Vital Signs: Blood pressure 107/58, heart rate 91, respirations 19, afebrile. General: No acute distress. Skin: Warm and dry. Neck: The neck veins are not visible. Heart: Regular. Lungs: Equal. No edema. IMPRESSION AND PLAN: 1. Chronic kidney disease 5D. He will have dialysis today after his catheter is placed. 2. Moderate hyponatremia and hyperkalemia, as well as metabolic acidosis. These will all be addressed with his treatment today. 3. Anemia is below target, but stable over the last 24 hours. Observe. cc: Randall Valderrama MD
--- NOTE | 2019-11-26 16:30 | DISCHARGE SUMMARY ---
ADMISSION DATE: 11/18/2019 DISCHARGE DATE: 11/26/2019 DISCHARGE DISPOSITION: Rehab. DISCHARGE CONDITION: Hemodynamically stable. The patient is alert and oriented x3. He is able to engage in conversation meaningfully. He is breathing well on nasal cannula. DISCHARGE DIAGNOSES: 1. Acute hypoxic hypercapnic respiratory failure. 2. Acute metabolic encephalopathy. 3. Acute bronchitis, status post antibiotic course. 4. Malfunctioning of left forearm AV fistula. 5. Pancytopenia. OTHER DIAGNOSES: 1. History of [id number]-djao smoking history. 2. History of coronary artery disease status post stent in 2017. 3. History of chronic kidney disease, stage 5; on Monday, Monday, Monday hemodialysis. DISCHARGE MEDICATION: 1. The patient is on 2 L nasal cannula oxygen. 2. Atorvastatin 40 mg at nighttime. 3. Aspirin 81 mg daily. 4. Carbamazepine 200 mg b.i.d. 5. Prasugrel or Effient 10 mg daily. 6. Metoprolol 25 mg daily. 7. Melatonin 20 mg at nighttime. 8. Pantoprazole 40 mg daily. 9. Senna 1 tablet b.i.d. 10. Vitamin B12 1,000 mcg orally daily. 11. Mirtazapine 45 mg at nighttime. 12. Docusate 100 mg b.i.d. 13. DuoNeb 3 mL inhaled every 6 hours as needed for shortness of breath. 14. Folic acid 1 mg daily. 15. MiraLAX 17 gm b.i.d. VITALS: At the time of current dictation, temperature 97 degrees, pulse 81, respiratory 13, blood pressure 123/64, saturating 94% on 2 L nasal cannula. PHYSICAL EXAMINATION: Not in acute distress. Oral cavity is dry. Lungs: Air entry bilaterally equal. No wheeze or rhonchi. Inspiratory crackles in infrascapular region. Heart: S1, S2 normal, regular. No murmur, rub or gallop except systolic murmur at second intercostal space. Abdomen: Soft, nontender. Extremities: Mild bilateral lower extremity edema, more pronounced on the left lower extremity. Left arm AV fistula with superficial hematoma. Right chest tunneled dialysis catheter. He is alert and oriented x3. SIGNIFICANT LABS: His WBC is 2.4, hemoglobin 9.1, platelet 88,000. On presentation he had a pH of 7.20 and pCO2 of 61, which improved to a pH of 7.37 and pCO2 of 46. His sodium is 128, potassium 5.4, which is treated with albuterol and insulin. Chloride 91, BUN 67 and creatinine 7.5. MICROBIOLOGY: Blood culture during hospital admission did not have any growth. IMAGING DURING HOSPITAL ADMISSION: Chest x-ray on presentation had left basilar infiltrate and atelectasis with small left effusion, cardiomegaly and central vascular prominence. Head CT did not have any hemorrhage or any acute etiology. Chest CT on November 20 had cardiomegaly, bilateral pleural effusion, patchy atelectasis of left lung base. Chest x-ray on November 24 had normal pulmonary vascularity and mild bilateral pleural effusions. Electrocardiogram on presentation had a sinus rhythm with first-degree AV block, left axis deviation, right bundle branch block. 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 PROCEDURES DURING HOSPITAL ADMISSION: On November 26, patient underwent right internal jugular PermCath placement using ultrasound fluoroscopy under general and local anesthesia. CONSULTATIONS DURING HOSPITAL ADMISSION: 1. Nephrology, Dr. Valderrama. 2. Pulmonology, Dr. Hill. 3. General Surgeon, Dr. Salgado. HOSPITAL COURSE SUMMARY: Mr. Little is an 89-year-old man who initially presented on 11/18/2019 with chief complaints of generalized weakness and hallucination. He also had muscle jerking affecting all of his extremities. His complaints were present for about 72 hours prior to presentation. Because of weakness he had missed multiple hemodialysis over the last couple of weeks. He had visited another hospital emergency room a few days ago, was diagnosed with dehydration and was discharged home. However, his weakness did not get better and so he decided to come to the emergency room. In the emergency room, the patient was found to have acute hypercarbic respiratory failure with carbon dioxide retention. He did not have a known history of COPD, though he did have a [id number] smoking history, though his mental status has improved after coming to the emergency room, so the hospitalist team was consulted for further management. He had bilateral small pleural effusions, left lower lobe infiltrates. He was diagnosed with suspected left lower lobe pneumonia and acute bronchitis, was started on intravenous antibiotics, inhaled bronchodilators, and was admitted for further management and nephrology team was consulted for dialysis which he received. After dialysis his mental status and clinical condition improved and he was breathing well on 2 L nasal cannula oxygen. His left forearm AV fistula was nonfunctional and he received right-sided PermCath placement and he received dialysis through that. At the time of discharge he was alert and oriented and he was deemed appropriate to be discharged to rehab considering his functional decline over last couple of weeks. More than 30 minutes of time was spent in discharging this patient. Plan of care was discussed with the patient. All of his questions were satisfactorily answered. SIGNIFICANT IMAGING DURING HOSPITAL ADMISSION: Ultrasound had a patent left upper extremity radiocephalic AV fistula, although there was hematoma over it which was causing some compression. FOLLOW UP: 1. CBC and BMP in [address] Caicedo- computer lab aide in [address] Hill- Street Light Repairer Helper in 10 days. cc: Jhonatan Segura MD MTDD
[2019-11-26] MEDS: REMERON PO SCH (21:06)
[2019-11-26] MEDS: DULCOLAX PR SCH (21:09)
[2019-11-26] MEDS: MELATONIN PO SCH (21:18)
[2019-11-26] MEDS: DESYREL PO SCH (21:30)
[2019-11-27] MEDS: DUONEB (A & A) INH SCH ×5 (04:04→23:26)
[2019-11-27 05:44] LABS: ALBUMIN 2.7 g/dL (3.5-5.0); CALCIUM 7.9 mg/dL (8.8-10.2); CREATININE 4.6 mg/dL (0.7-1.2); PHOSPHORUS 4.3 mg/dL (2.7-4.5); POTASSIUM 4.4 mmol/L (3.5-5.1)
[2019-11-27] MEDS: PROTONIX PO SCH (06:36)
--- NOTE | 2019-11-27 10:02 | Extremity Venous Study ---
PROCEDURE NAME: Venous U/S Left Leg - 11/25/2019 STUDY PERFORMED: This is the left lower extremity venous duplex and color flow imaging study using the [employer] vivid E9 ultrasound system with a 9 L-D transducer. REFERRING PHYSICIAN: Dr. Valderrama. IDENTIFYING DATA: An 89-year-old male. CHAMFERING MACHINE OPERATOR: Gregoria Smith RVT. INDICATIONS: Left lower extremity pain and swelling suggestive of deep venous thrombosis. FINDINGS: Left common femoral vein and its branches, deep and superficial femoral veins were satisfactorily imaged. They had flow through them and were compressible. Left popliteal vein and the deep veins below the left knee were all compressible and had flow through them. The superficial veins of the left lower extremity were compressible throughout their length. INTERPRETATION: No evidence of acute deep or superficial venous thrombosis, left lower extremity. cc: MD Randall Garcia MD
[2019-11-27] MEDS: TEGRETOL PO SCH ×2 (10:16→22:42)
[2019-11-27] MEDS: COLACE PO SCH ×2 (10:16→22:43)
[2019-11-27] MEDS: VITAMIN B-12 PO SCH (10:16)
[2019-11-27] MEDS: PERICOLACE PO SCH ×2 (10:16→22:43)
[2019-11-27] MEDS: FOLIC ACID PO SCH (10:16)
[2019-11-27] MEDS: EFFIENT PO SCH (10:23)
[2019-11-27] MEDS: ASPIRIN PO SCH (10:23)
[2019-11-27] MEDS: LACTULOSE PO SCH ×2 (10:25→22:44)
[2019-11-27] MEDS: MIRALAX PO SCH ×2 (10:25→22:44)
--- NOTE | 2019-11-27 10:52 | PROGRESS NOTE ---
DATE: 11/27/2019 INTERVAL HISTORY: No acute events overnight. SUBJECTIVE: Mr. Little denies any complaints. He states he was recently started on Lyrica for his pain, and he did not do well on that. We were discussing that could have been one of the reasons why he had hypercarbic respiratory failure. I also told him that considering [place], he may not be able to be discharged today. OBJECTIVE: Vital Signs: Temperature 98.2 degrees, pulse 85, respiratory rate 14, blood pressure 108/60, and saturating 93% on room air. General: He was feeling nauseous in the morning time, but then started feeling better. Not in acute distress. HEENT: Oral cavity is moist. Lungs: Air entry bilaterally equal. No wheeze, rhonchi, or crackles. Cardiovascular: S1, S2 normal. Systolic murmur at right second intercostal space. No rub or gallop. Abdomen: Soft. Nontender. Extremities: He has bilateral lower extremity edema, more affecting left lower extremity. He has left forearm AV fistula with superficial hematoma around it, right-sided chest dialysis catheter. Neurologic: He is alert and oriented x3. LABORATORY: No CBC today. BMP suggestive of elevated BUN and creatinine. IMAGING: Ultrasound of the left lower extremity did not detect any DVT. ASSESSMENT AND PLAN: 1. Acute hypercapnic respiratory failure leading to acute encephalopathy. He was using mirtazapine, Lyrica at home, and had also missed hemodialysis. He also had remote history of 30 pack year smoking without any known COPD. Head CT on admission did not have acute pathology, and his respiratory status improved. Currently, he is breathing well on room air. I will advise him outpatient pulmonology followup and lung function test. His acute bronchitis was treated with antibiotics. 2. Acute hypoxic respiratory failure, likely due to missing hemodialysis and bilateral pleural effusion now improved after receiving adequate dialysis. He is breathing well on room air. 3. Chronic kidney disease stage 5, on Monday, Monday, Monday hemodialysis. He received right- sided chest PermCath on 11/26 which is functioning well. His left forearm AV fistula had stopped functioning, and had developed superficial hematoma. Nephrology team on board. 4. Pancytopenia, currently stable. He would need outpatient oncology evaluation. 5. Coronary artery disease status post stent in 2017. Continue home aspirin and prasugrel. 6. Post procedure hypotension on 11/26/2019 after PermCath placement, resolved after 500 mL of intravenous fluids. DISPOSITION: He is ready to be discharged to rehab. However, today is a holiday so he would likely go tomorrow. Plan of care discussed with him. His questions have been satisfactorily answered. cc: Jhonatan Segura MD MTDD
[2019-11-27] MEDS ORDERED: HEPARIN IV PRN (12:24)
[2019-11-27] MEDS ORDERED: TIGHT: 0.2 ML/HR FOR DIALYSIS MISC PRN (12:24)
[2019-11-27] MEDS ORDERED: NS 2,000 ML MISC PRN (12:24)
--- NOTE | 2019-11-27 12:26 | NEPHROLOGY PROGRESS NOTE ---
DATE: 11/27/2019 SUBJECTIVE: He had a tunneled dialysis catheter placed. Dialysis today. No shortness of breath. No nausea, vomiting, etc. OBJECTIVE: Vital Signs: Blood pressure 108/60, heart rate 85, respirations 16, afebrile. General: No acute distress. Skin: Warm and dry. Neck: The neck veins are not distended. Heart: Regular. Lungs: Equal. No crackles. Abdomen: Soft, nontender. Bowel sounds are present. There is 1+ edema. IMPRESSION AND PLAN: 1. Chronic kidney disease 5D. He had his routine dialysis yesterday. Electrolytes/acid base in target. Blood pressure is low, but in target. 2. Hemoglobin is 9.1 on yesterday. Minimal change. We will observe. 3. Difficult cannulation. We will continue to use his catheter and referred to Nephcon after discharge. 4. Asymmetrical swelling. Negative duplex Doppler. cc: Randall Valderrama MD MTDD
[2019-11-27 18:41] LABS: BASO# 0.02 X1000 (0.0-0.2); BASO% 0.8 % (0.0-0.8); EOS# 0.06 X1000 (0.0-0.7); EOS% 2.4 % (0.0-10.0); HEMATOCRIT 31.4 % (42.0-52.0); HEMOGLOBIN 9.7 g/dL (14.0-18.0); LYMPH% 27.5 % (20.5-51.1); MCH 32.2 PG (27-31); MCHC 30.9 g/dL (33-37); MCV 104.3 FL (81-99); MONO% 7.8 % (1.7-9.3); MPV 9.9 FL (7.4-10.4); NEUT# 1.57 X1000 (1.4-6.5); NEUT% 61.5 % (42.2-75.2); PLT 81 X1000 (130-400); RBC 3.01 XMIL (4.7-6.1); RDW 14.6 % (11.5-14.5); WBC 2.55 X1000 (4.8-10.8)
[2019-11-27] MEDS: REMERON PO SCH (22:42)
[2019-11-27] MEDS: DESYREL PO SCH (22:42)
[2019-11-27] MEDS: DULCOLAX PR SCH (22:43)
[2019-11-27] MEDS: MELATONIN PO SCH (22:43)
[2019-11-28] MEDS: DUONEB (A & A) INH SCH ×2 (03:12→08:51)
[2019-11-28 06:14] LABS: ALBUMIN 2.8 g/dL (3.5-5.0); CALCIUM 8.4 mg/dL (8.8-10.2); CREATININE 3.7 mg/dL (0.7-1.2); PHOSPHORUS 3.5 mg/dL (2.7-4.5); POTASSIUM 3.8 mmol/L (3.5-5.1)
[2019-11-28] MEDS: PROTONIX PO SCH (06:15)
--- NOTE | 2019-11-28 07:17 | Diag Imaging Result Doc PS360 ---
EXAM: CHEST-1 VIEW 11/28/2019 HISTORY: SOB TECHNIQUE: AP portable at 0601 COMMENT: There is opacification of the retrocardiac left lower lobe. There has been some improvement in this regard since 11/24/2019, and the right costophrenic angle is now clear. IMPRESSION: Improved pulmonary edema plus minus pneumonia. Electronically signed by Main Eason 11/28/2019 7:14 AM
[2019-11-28] MEDS: TEGRETOL PO SCH (09:52)
[2019-11-28] MEDS: PERICOLACE PO SCH (09:52)
[2019-11-28] MEDS: COLACE PO SCH (09:52)
[2019-11-28] MEDS: ASPIRIN PO SCH (09:52)
[2019-11-28] MEDS: FOLIC ACID PO SCH (09:52)
[2019-11-28] MEDS: VITAMIN B-12 PO SCH (09:52)
[2019-11-28] MEDS: EFFIENT PO SCH (09:52)
[2019-11-28] MEDS: LACTULOSE PO SCH (09:53)
[2019-11-28] MEDS: MIRALAX PO SCH (09:53)
--- NOTE | 2019-11-28 10:20 | DISCHARGE SUMMARY ---
ADMISSION DATE: 11/18/2019 DISCHARGE DATE: ADDENDUM: Mr. Little has not had any significant events since the last discharge summary. SUBJECTIVE: Mr. Little denies chest pain, shortness of breath, cough, vomiting, abdominal pain. He has been having regular bowel movements. We discussed about following up with alterations expert for pancytopenia and dividend deposit entry clerk for lung function test. VITALS: Temperature 97.8 degrees, pulse 92, respiratory rate 22, blood pressure 123/60, saturating 96% on room air. PHYSICAL EXAMINATION: Not in acute distress. Oral cavity is moist. Lungs: Air entry bilaterally equal. No wheeze, rhonchi, or crackles. Cardiovascular: S1, S2 normal. Systolic murmur in the second right intercostal space. No rub or gallop. Abdomen: Soft, nontender. He has mild bilateral lower extremity edema. He has left forearm AV fistula with superficial hematoma and right-sided chest dialysis catheter. LABS: Latest WBC 2.5, hemoglobin 9.7, platelets 81,000. BUN 29, creatinine 3.7, potassium 3.8. No positive microbiological data. No new imaging except chest x-ray on November 28 has improved pulmonary edema. ASSESSMENT: 1. Acute hypoxic, hypercapnic respiratory failure leading to acute encephalopathy. 2. Missing hemodialysis leading to acute pulmonary edema. 3. Chronic kidney disease stage 5, on intermittent hemodialysis. 4. Pancytopenia. 5. Coronary artery disease, status post stent in 2017. PLAN: The patient will be discharged to rehab. He does not need any oxygen. He was counseled that use of Lyrica or mirtazapine could have contributed to it. However, currently, he is tolerating mirtazapine well. He was advised to be regular with dialysis. More than 30 minutes of time were spent discharging this patient. cc: Jhonatan Segura MD
[2019-11-28 13:00] VITALS: BP 137/62
--- NOTE | 2019-11-28 15:50 | PROVIDER PROGRESS NOTE ---
Progress Note Subjective: voices restless legs during the night and not getting and rest from that. No uremic complaints noted. Objective: temperature 97.7, pulse 88, respirations 18, blood pressure 122/45, 02 sat 93% on room air. General: elderly white male lying in bed and no acute distress, HEENT: normocephalic, atraumatic, pupils equal and reactive, mucous membranes moist, trachea midline. Skin: warm and dry Neck: Supple, 8 cm JVD. Cardiovascular: S1S2, regular rate and rhythm. No murmurs or gallops respiratory: left lung diminished Abdomen: soft, nontender, nondistended. Bowel sounds present : non-inspected Extremities: one plus pitting to left lower extremity and trace edema to the right lower extremity. Neurological: alert and oriented to person, place, and time. Labs: sodium 140, potassium 3.8, chloride 100, carbon dioxide 27, BUN 29, creatinine 3.7. Intake 800, output 3155. Impression: Chronic kidney disease stage 5D. He had his routine hemodialysis yesterday with no problems using his tunnel catheter. [facility] is [facility] to [facility] he is discharged. Blood pressure. In target. Fluid volume. Slightly expanded. He is due hemodialysis treatment tomorrow. At this time we will evaluate further need to challenge his dry weight. Anemia. Low, but stable. Does not meet transfusion criteria. Electrolytes and acid base balance. In target. Nutrition adequate. Ambulation. Up with therapy. Medication review.
== END 2019-11-28 15:41 | DRG 291 ==
LOC: SUPCPDRO → ED 10:15 → SUATTDRO 16:17 → 1N 16:17
PROVIDERS: ATTEND Internal Medicine